=== PATIENT | female | born 1975 | race Caucasian/White ===

== ENCOUNTER 2022-07-02 17:29 | Emergency (ER) | payer BC ==
[2022-07-02 17:46] VITALS: BP 146/92; PULSE 110; RESP 20; TEMP 98.7; BMI 29.5
[2022-07-02] MEDS ORDERED: DIPHTH,PERTUSS(ACELL),TET 0.5 ML DISP.SYRIN IM ONE ×2 (18:31→18:37)
== END 2022-07-02 18:56 | disposition home or self-care (01) ==
LOC: FER 17:29
PROC: 3E0234Z Introduction of Serum, Toxoid and Vaccine into Muscle, Percutaneous Approach (ICD-10-PCS; principal; 2022-07-02)
DX: S61.212A Laceration without foreign body of right middle finger without damage to nail, initial encounter (principal); W25.XXXA Contact with sharp glass, initial encounter
CPT/HCPCS: 90471; 90715; 99284-25